=== PATIENT | male | born 2005 | race Two or more races ===

== ENCOUNTER 2025-08-22 06:11 | Emergency (ER) | payer BC, SELFPAY ==
[2025-08-22 06:15] VITALS: BP 134/94; PULSE 125; RESP 17; TEMP 36.9; O2SAT 99
[2025-08-22 06:17] VITALS: BMI 24.2
--- NOTE | 2025-08-22 07:56 | PC.NURSE ---
ESTELA BELCHER MADE AWARE OF PT'S HR. NO NEW ORDERS AT THIS TIME; PER ESTELA, I OFFERED TO DO LABS & EKG BUT PT IS REFUSING.
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
[2025-08-22 08:21] VITALS: BP 128/77; PULSE 110; RESP 16; TEMP 36.8; O2SAT 98
== END 2025-08-22 08:23 ==
PROVIDERS: Emergency Provider Physician Assistant
DX: Z02.89 Encounter for other administrative examinations (principal); R00.0 Tachycardia, unspecified
CPT/HCPCS: 99281